=== PATIENT | male | born 1950 | race Caucasian/White ===

== ENCOUNTER 2016-04-10 02:53 | Day surgery (SDC) | payer OTHER ==
[2016-04-10] VITALS (8 sets, daily range): BP systolic 140–178; BP diastolic 71–85; PULSE 67–82; RESP 17–19; O2SAT 94–96
[~2016-04-10] VITALS: Ht 175.3 cm; Wt 106.0 kg
[~2016-04-10 02:53] MED LIST: ASPI81TA3 PO; ATOR40TA69 PO; CALC500T9 PO; CLOP75TA28 PO; DIAZ5TAB3 PO; LISI-567 PO; METO50TA3 PO; NITR0.4T6 SL; NITR1PAT5 TD; PANT40TA3 PO; VIT1TABL83 PO
[2016-04-10] MEDS ORDERED: 0.9% Sodium Chloride 1,000 ML IV ONE (09:49)
[2016-04-10] MEDS ORDERED: Heparin 5,000 Units/500 mL NS Premix IV ONE (12:57)
[2016-04-10] MEDS ORDERED: Heparin 1,000 Units/500 mL NS Premix IV ONE (12:57)
--- NOTE | 2016-04-10 13:07 | NUR ---
Admit note- Patient ambulated to [facility]. Alert and oriented. Denies discomfort. NPO since 04/09 except for meds this am. Discussed procedure and post heart cath activity restrictions with patient who verbalized understanding.
--- NOTE | 2016-04-10 17:11 | NUR ---
Discharge note- Patient returned to [facility] post heart catheterization. Drowsy, but arouses easily. Denies pain. Right groin with closure device with no signs of bleeding or hematoma. Tolerating fluids. Voided per urinal. Monitor shows sinus rhythm. Up at bedside after 2 hour bedrest. Denies dizziness. No bleeding. Discharged to home with and personal belongings.Post heart cath instructions given.
--- NOTE | 2016-04-11 14:30 | CS94 ---
[address] [address] DIAGNOSTIC CARDIAC CATHETERIZATION PATIENT: MARIE NORIEGA : 1950 MR#: [id number] ADMIT: 04/10/2016 JOB ID: [id number] SERVICE DATE: 04/10/2016 PROCEDURES: Selective coronary arteriography, left heart catheterization, left ventricular cineangiography. 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 Repeat coronary angiography is performed to redefine his coronary anatomy and therapeutic options. PROCEDURE: Please refer to the log in the cath laboratory folder for details. The patient was prepped and draped in the standard fashion and his right common femoral artery anesthetized with lidocaine. A 10 cm 5-Lithuanian sheath was easily placed in the right common femoral artery with a single wall puncture. Standard JL4 and JR4 catheters were then used for coronary angiography. An angled pigtail catheter was then utilized for left heart catheterization and left ventricular cineangiography. A total of 30 cc of contrast was injected over a 3 second period for ventriculography and filmed in the GAFFNEY projection. At the end of the procedure an angiogram of the right common femoral artery showed an adequate arteriotomy site for closure device and a StarClose closure device was successfully deployed by the cath laboratory staff with good hemostasis and the patient was transferred to the observation unit for monitoring. FINDINGS: CORONARY ANGIOGRAPHY: Left main coronary artery: The left main vessel is a moderately large caliber artery that is fairly short, bifurcating into an LAD and left circumflex system. There is an eccentric stenosis of the left main coronary artery at its distal bifurcation accounting for probably a 40% to 50% narrowing. Left anterior descending coronary artery: The anterior descending coronary artery is a fairly large transapical vessel. Very proximally it gives rise to a major diagonal vessel which is diffusely disease with a 60% to 70% ostial narrowing and significant tubular irregularities with a discrete 95% stenosis in its proximal 1/3. The distal vessel then bifurcates with at least one of the major branches being probably a 1.5 mm vessel. The LAD then gives rise to a fairly prominent 1st septal set up operator tool. The original stent was placed after the first diagonal before the large septal set up operator tool and it looks patent, without any significant recurrent stenosis. Distal to the septal set up operator tool there is a discrete 50% narrowing in the mid LAD. There is a moderate narrowing at the takeoff of a small second septal set up operator tool branch, probably another 50% to 60% lesion, and then a couple of centimeters distal is a somewhat difficult to appreciate but probably 70% or 80% narrowing in the mid LAD. The distal half of the LAD appears free of significant recurrent obstructive disease. Left circumflex coronary artery: The left circumflex vessel gives rise to a couple of fairly small obtuse marginal branches. It then gives rise to another distal obtuse marginal vessel with collateral filling of a more distal obtuse marginal vessel seen very faintly. There is likely occlusion of the circumflex distal to the 3rd obtuse marginal vessel, which again is relatively small. There is a fairly high-grade tubular stenosis just before this a third obtuse marginal vessel identified. The right coronary artery is a large caliber vessel. It shows intraluminal atherosclerotic irregularity throughout its course. The distal vessel then gives rise to a series of PDA and posterolateral vessels. There are three main branches that feed the inferior wall and then there is a posterolateral branch distally that bifurcates. The origin of the two PDA vessels is severely stenosed at about 90% to 95%, as is the origin of the third inferior wall vessel. There is also significant stenosis distally, just proximal to the bifurcation of the distal posterolateral branch. Each of these three main inferior wall vessels is probably a 1 to 1.5 mm vessel and may be suitable for bypass grafting. Left ventricular cineangiography: The left ventricle is normal in size and shape. Left ventricular contractility appears vigorous. The left ventricular end-diastolic pressure was moderately increased at around 20-25 mmHg. DISCUSSION: This patient has complex coronary anatomy. The distal right coronary lesions I think would be a bit of a challenge for catheter-based intervention and I think there is likely a FORMER HAND of the distal circumflex that may be suitable for revascularization with that vessel filling retrograde on the right coronary injection. 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 This gentleman is somewhat reluctant to consider surgery but understands that that may be the best option for him. I have suggested that he be seen at the [facility] by Interventional Cardiology as well as Surgery for input regarding each specialty's recommendations for revascularization and then make a decision. He may benefit in fact by a hybrid surgical and interventional approach, which I think may best be orchestrated at the [facility] as well. I will ask my office to contact the [facility] and make arrangements for his consultations.
== END 2016-04-10 23:59 | disposition home or self-care (01) ==
LOC: SOUO 02:53
PROVIDERS: ATTEND Internal Medicine Cardiovascular Disease
DX: I25.119 Atherosclerotic heart disease of native coronary artery with unspecified angina pectoris (principal); I10 Essential (primary) hypertension; F17.200 Nicotine dependence, unspecified, uncomplicated; Z95.5 Presence of coronary angioplasty implant and graft; Z79.02 Long term (current) use of antithrombotics/antiplatelets; Z79.82 Long term (current) use of aspirin; E78.5 Hyperlipidemia, unspecified; N40.1 Benign prostatic hyperplasia with lower urinary tract symptoms; R39.15 Urgency of urination
CPT/HCPCS: 93005; 93458; C1769; J1200; J1644; J2060; J7030; Q9967